=== PATIENT | male | born 1965 | race Caucasian/White ===

== ENCOUNTER 2023-11-14 07:00 | Outpatient (NON) | payer OTHER, SELFPAY | END 2023-11-14 07:01 | disposition home or self-care (01) | PROVIDERS: PCP Emergency Medicine; Visit Provider Internal Medicine Gastroenterology | DX: K63.5 Polyp of colon (principal); K62.5 Hemorrhage of anus and rectum | CPT/HCPCS: 88305 ==

== ENCOUNTER 2023-11-14 12:03 | Day surgery (SDC) | payer OTHER, SELFPAY ==
[2023-11-01 08:56] VITALS: BMI 27.6
[2023-11-02 07:37] VITALS: BMI 27.0
[2023-11-14 12:30] VITALS: BP 142/90; PULSE 77; RESP 20; TEMP 36.8; O2SAT 100
[2023-11-14] MEDS: LACTATED RINGERS 1,000 ML 150 ML IV CONT (12:32)
--- NOTE | 2023-11-14 12:49 | P.HP_ITS ---
History of Present Illness History of Present Illness Consent: Risks, benefits, and alternatives have been discussed and questions answered. Patient agrees to proceed with procedure. Chief complaint: Gerd and Blood in Stool Narrative: Pb Bagley is a 58 year old male presents for colonoscopy and EGD. Patient has noticed occasional bright red blood per rectum with blood admixed to stool intermittently over last several years. He denies any abdominal or rectal pain. Additionally patient has intermittent heartburn. He takes Tums or Rolaids which seems to help. He takes this only intermittently. Heartburn has been present for several years. Patient denies any dysphagia or upper GI bleeding. Review of Systems Review of Systems: Review of systems is noncontributory. [facility] Social History Social History Smoking packs per day: 0.5 Smoking cigarettes per day: 10.0 Years smoked: 30 Smoking pack-years: 15.00 Smoking status: Former smoker Alcohol intake: current Alcohol use details: socially Substance use: never Substance use type: does not use Living arrangements: alone Spiritual care concerns: No Meds Home Medications and Allergies Home Medications Medication Instructions Recorded Confirmed Type calcium carbonate 300 mg (750 mg) 1 tablet PO TID PRN Indigestion 11/14/23 11/14/23 History chewable tablet (Tums) Allergies Allergy/AdvReac Type Severity Reaction Status Date / Time No Known Allergies Allergy Unknown Verified 11/14/23 12:29 Vital Signs Vital Signs - 24 hr 11/14/23 12:30 Temperature 98.3 F Pulse Rate 77 Respiratory Rate 20 Blood Pressure 142/90 H Pulse Oximetry 100 Oxygen Delivery Room Air Exam Narrative: Physical exam reveals patient signs stable. HEENT marked bulbar. Patient is anicteric. Lungs are clear to auscultation and to percussion is without murmur or extra sounds. Abdomen bowel sounds are present soft nontender with no organomegaly. Digital external rectal exam is normal. Assessment and Plan Assessment and plan (1) Heartburn: Code(s): R12 - Heartburn Status: Acute Assessment and Plan: Patient with intermittent heartburn. Currently only takes Tums intermittently. Would recommend a trial of Pepcid. EGD is requested will be performed. Further recommendations may be given after endoscopy. Anti-reflux measures also encouraged. (2) Rectal bleeding: Code(s): K62.5 - Hemorrhage of anus and rectum Status: Acute Assessment and Plan: Patient complains of occasional bright red blood per rectum. Recommend stool softener such as Metamucil daily. Further recommendations will be given after endoscopy
--- NOTE | 2023-11-14 13:18 | WPDANESEPPF ---
Anes - Initial Pre Proc Eval Procedure: Operation Date: 11/14/23 13:30 Proposed Procedures p Esophagogastroduodenoscopy - Riley Doe MD s Diagnostic Colonoscopy - Riley Doe MD Date/Time: 11/14/23 13:18 Surgeon: Riley Doe MD Pre Op Diagnosis: Gerd and Blood in Stool Patient Data Age: 58 Gender: M Height: 1.8 m Weight: 87.45 kg Last Vital Signs Temp 36.8 C 11/14/23 12:30 Pulse 77 11/14/23 12:30 Resp 20 11/14/23 12:30 BP 142/90 H 11/14/23 12:30 Pulse Ox 100 11/14/23 12:30 O2 Del Method Room Air 11/14/23 12:30 Allergies Allergy/AdvReac Type Severity Reaction Status Date / Time No Known Allergies Allergy Unknown Verified 11/14/23 12:29 Home Medications Medication Instructions Recorded Confirmed Type calcium carbonate 300 mg (750 mg) 1 tablet PO TID PRN Indigestion 11/14/23 11/14/23 History chewable tablet (Tums) Patient hx anesthesia problems: none Family hx anesthesia problems: none Results Review: All pre-operative results and documents have been reviewed as part of the pre-operative evaluation. [facility] Social History Social History Smoking packs per day: 0.5 Smoking cigarettes per day: 10.0 Years smoked: 30 Smoking pack-years: 15.00 Smoking status: Former smoker Alcohol intake: current Alcohol use details: socially Substance use: never Substance use type: does not use Living arrangements: alone Spiritual care concerns: No Anes - Eval Final PreProcedure Day of Procedure 11/14/23 13:18 Patient weight: overweight Heart: regular rate and rhythm Lungs: clear to auscultation Airway: Mallampati scale class II Neurological: alert and oriented Last oral intake: >/= 8 hours ASA classification: II Emergent: no Anesthetic plan: proceed Anesthesia type and monitoring: general GIVS and standard monitoring Results Review: All pre-operative results and documents have been reviewed as part of the pre-operative evaluation. Informed Consent: The patient's anesthetic plan and its attendant risks and benefits were discussed with the patient/family/POA. Questions were solicited and answers provided to the satisfaction of the patient/family/POA.
[2023-11-14 13:53] VITALS: BP 95/57; PULSE 54; RESP 14; O2SAT 97
[2023-11-14 14:03] VITALS: BP 97/56; PULSE 54; RESP 14; O2SAT 98
--- NOTE | 2023-11-14 14:07 | WPDANESPN ---
Anes - Prog Note Post-Op Date/Time: 11/14/23 14:07 Cardiovascular status: normal Respiratory status: normal Airway patency: baseline Mental status: baseline Post-Op hydration status: normal Vital Signs: Last Vital Signs Temp 36.8 C 11/14/23 12:30 Pulse 77 11/14/23 12:30 Resp 20 11/14/23 12:30 BP 142/90 H 11/14/23 12:30 Pulse Ox 100 11/14/23 12:30 O2 Del Method Room Air 11/14/23 12:30 Pain Score (VAS): 0 I/O: Intake & Output 11/13/23 11/14/23 11/14/23 23:59 07:59 15:59 Intake Total 400 Balance 400 Patient Feedback: Patient satisfied with anesthetic care.
[2023-11-14 14:13] VITALS: BP 128/96; PULSE 55; RESP 14; O2SAT 99
== END 2023-11-14 14:25 | disposition home or self-care (01) ==
PROVIDERS: PCP Emergency Medicine; Visit Provider Internal Medicine Gastroenterology
PROC: 0DJ08ZZ Inspection of Upper Intestinal Tract, Via Natural or Artificial Opening Endoscopic (ICD-10-PCS; CPT 43235; principal; 2023-11-14 13:30)
PROC: 0DJD8ZZ Inspection of Lower Intestinal Tract, Via Natural or Artificial Opening Endoscopic (ICD-10-PCS; CPT 45378; 2023-11-14 13:30)
DX: R12 Heartburn (principal); Z12.11 Encounter for screening for malignant neoplasm of colon; D12.8 Benign neoplasm of rectum; K64.8 Other hemorrhoids
CPT/HCPCS: 45385; 43239

== ENCOUNTER 2024-11-24 12:58 | Outpatient (CLI) | payer OTHER, SELFPAY ==
--- NOTE | 2024-11-24 | ECG_ITS ---
Test Date: 2024-11-24 13:17:50 Measurements Intervals [place] Rate: 73 P: 59 MD: 191 QRS: 43 QRSD: 84 T: 32 QT: 351 QTc: 389 Interpretive Statements SINUS RHYTHM BASELINE ARTIFACT- I, II, III, AVR, AVL, AVF, V1 NORMAL ECG No previous ECG available for comparison Electronically Signed On 11-24-2024 13:57:49 CDT by Augusto Stratton D.O.
--- OUTSIDE RECORDS SUMMARY | 2024-11-24 14:47 | XMS_ITS | CONTINUITY OF CARE DOCUMENT ---
Author Name ottoniel alcazar Address Unknown Organization [facility] Address [address] [place] [address] Phone [phone] Care Team Providers Care Environmental Emergencies Planner Name Role Phone Wilfredo Wade MD Unavailable [phone] Wilfrdeo Wade MD Unavailable [phone] INSURANCE PROVIDERS Payer name Policy type / Coverage type [place] red green party ID [employer] Commercial insurance company [id number]
--- OUTSIDE RECORDS SUMMARY | 2024-11-24 14:47 | XMS_ITS | Referral Summary ---
Author Organization [facility] Address [address] [place] [address] Care Team Providers Care Mash Filter Cloth Changer Name Role Phone Unknown, Notinfile Primary Care Provider Unavail able Allergies No known active allergies Social History Tobacco Use Types Packs/Day Years Used Date Smoking Tobacco: Never Assessed Personal Safety Answer Date Recorded Have you ever been in or are you currently in a harmful physical or emotional relationship or is someone making you feel afraid or unsafe? 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 Gender Identity Not on file Sexual Orientation Not on file Last Filed Vital Signs Vital Sign Reading Time Taken Comments Blood Pressure 170/80 10/30/2023 8:30 AM CDT Pulse 51 10/30/2023 8:30 AM CDT Temperature 36.5 C (97.7 F) 10/30/2023 4:08 AM CDT Respiratory Rate 18 10/30/2023 4:08 AM CDT Oxygen Saturation 96% 10/30/2023 8:30 AM CDT Inhaled Oxygen Concentration - - Weight 88.5 kg (195 lb) 10/29/2023 8:12 PM CDT Height 180.3 cm (5' 11 ) 10/29/2023 8:12 PM CDT Body Mass Index 27.2 10/29/2023 8:12 PM CDT Plan of Treatment Not on file Insurance [employer] OPEN ACCESS CIGNA Care Teams Mash Filter Cloth Changer Relationship Specialty Start Date End Date Unknown, Notinfile PCP - General 10/28/23
--- OUTSIDE RECORDS SUMMARY | 2024-11-24 14:47 | XMS_ITS | Continuity of Care Document ---
Author Organization [facility] Address [address] [place] [address] [place] [address] Phone Care Team Providers Care Battery Installer Name Role Phone Marcello Edmondson MD Unavailable Unavailable Allergies, Adverse Reactions, Alerts Substance Reaction Status Criticality No Known Allergies Active No Inform ation Medications Medication Instructions Dosage Effective Dates (start - stop) Status Comments Norvasc 10 mg tablet take 1 tablet by or al route every day 10 MG - Active hydralazine 10 mg tablet take 1 tablet by oral route 3 times every day with food 10 MG - Active Blood Pressure Kit check bp once per day 25 - Active HTN Procedures Procedure Date OFFICE/OUTPATIENT VISIT, EST PREV VISIT, EST, AGE 40-64 OFFICE/OUTPATIENT VISIT, EST OFFICE/OUTPATIENT VISIT, EST PREV VISIT, NEW, AGE 40-64 OFFICE/OUTPATIENT VISIT, NEW Advance Directives Directive Yes / No Effective Date File Name No Information Encounters Encounter Description Practice Location Reason(s) For Visit Diagnoses Date Provider Providers Copied on Encounter OFFICE/OUTPA TIENT VISIT, EST [facility], [email or web address] [place], [id number], [place] tel:[phone] [facility] HTN (chief complaint) Chest painEssential (primary) hypertension 5 Delvis Armendariz. [address], [place], [place], [id number] , [place]. tel:[phone] PREV VISIT, EST, AGE 40-64 [facility], [email or web address], [place], [place], [id number], tel:[phone] [facility] physical (chief complaint) Encounter for general adult medical exam w abnormal findingsEssential (primary) hypertension 5 Delvis Armendariz. [address], [place], [place], [id number] , . tel:[phone] OFFICE/OUTPA TIENT VISIT, EST [facility], [address], [place], [place], [id number], tel:[phone] [facility] HTN (chief complaint) GERD1 (chief complaint) colon (chief complaint) Essential (primary) hypertensionGERD w/o esophagitisPolyp of colon 5 Delvis Armendariz. [address], [place], [place], [id number] , . tel:[phone] PREV VISIT, NEW, AGE 40-64 [facility], [address], [place], [place], [address], tel:[phone] [facility] physical (chief complaint) Encounter for general adult medical exam w abnormal findingsViral infectionEssential (primary) hypertensionOccult blood in stoolGERD w/o esophagitis 4 Delvis Armendariz. [address], [place], [id number] , . [phone] Family History Family Member Type Diagnosis Age At Onset Father Problem Hypertension Sister Problem Alive and well Mother Problem Alive and well Payers Payer name Insurance type Covered republican ID Idalmis pruitt(s) Leisa [id number] Social History Type Description Quantity Date Captured Comments Alcohol Use Details Caffeine Use Details Unknown Tobacco Use Status Ex-cigarette smoker 025 Smoking Status Former smoker Sex Male Vital Signs Date / Time: Height Weight BMI Pulse Rate Blood Pressure Temperature Respiratory Rate Body Surface Area Head Circumference BMI percentile Pulse Ox Inhaled Ox 12:14 PM 71.00 in 192.60 lbs 26.8 6 kg/m eter (2) 85 /min 146/80 mm[Hg] 98.5 F 16 /min Chief Complaint And Reason For Visit From encounter dated '11/24/2024 12:11'. HTN (chief complaint). Description: Pt has been feeling off recently with intermittent sudden onsetof chest tightness, diffuse sweaty, nausea with lightheadedness and some sob which occurred twice during last two weeks. Pt states that both episode occurs while he was standing without physically active Pt denies any palpitation. Pt denies any recent travel or bedrest .Pt states that symptoms resolved after 30 mins. Pt states that his HR went up to 130s during the last episode two days ago. Pt states that he feels fine now. Pt also notices ild tingling both finger tips. Pt denies any acute symptoms Plan Of Treatment Date Type Action Status Referral Ordered: Cardiology (related to Chest pain) ordered Referral Ordered: Referrals: Cardiology. Evaluate and treat ordered Referral Ordered: CARDIOVASCULAR STRESS TEST ordered Referral Ordered: EKG for initial prevent exam ordered Referral Ordered: COLONOSCOPY AND BIOPSY ordered Appointment Pb Bagley BOOKED History Of Present Illness Encounter Date Complaint History Of Prese nt Illness HTN Pt has been feel ing off recently with intermittent sudden onset of chest tightness, diffuse sweaty, nausea with lightheadedness and some sob which occurred twice during last two weeks. Pt states that both episode occurs while he was standing without physically active Pt denies any palpitation. Pt denies any recent travel or bedrest .Pt states that symptoms resolved after 30 mins. Pt states that his HR went up to 130s during the last episode two days ago. Pt states that he feels fine now. Pt also notices ild tingling both finger tips. Pt denies any acute symptoms physical Pt needs annual physical pt has HTN Pt takes hydralazine and norvasc and his bp is down around 140-150 at home. Pt no longer has any headache Pt denies any chest pain Pt denies any vision issue. pt overall feels much better pt denies any side effects from medication Pt denies any other complaints HTN Pt has been havi ng vague headache for two months. Pt denies any chest pain or vision change Pt denies any nausea, vomiting Pt feels tired Pt feels occasional dizziness. Pt denies any vision change GERD1 Pt has very mild GERD Pt had benign EGD last year colon Pt denies any re current blood in stool Pt had colonoscopy done last year which showed internal hemorrhoid and hyperplastic polyps physical Pt needs annual physical pt states tat he feels fine until one week ago Pt c/o night sweat, low back pain, diffuse myalgia, feels feverish, chills, for one week Pt denies any cough, sore throat. Pt has poor appetite and some indigestion. Pt denies any abdominal pain pt does have chronic GERD for many years and he has been taking tums only Pt also has been having intermittent bright red blood in stool for many years .pt denies any abdominal pain ,Pt denies any weight loss . Instructions Date Instruction Additional Infor mation No Information Assessments Type Assessment Date assessment Chest pain assessment Essential (primary) hypertension Mental Status Date Cognitive Assessment Orientation - [place] ed to time, place, person, situation.
--- OUTSIDE RECORDS SUMMARY | 2024-11-24 14:47 | XMS_ITS | Clinical Summary ---
Author Organization [facility] Address [address] [place] [address] Phone Care Team Providers Care Fruit Pitter Name Role Phone Unavailable Primary Care Provider Unavailabl e Allergies No known active allergies Medications naproxen (NAPROSYN) 500 mg Oral tablet Take 1 Tab by mouth 2 times daily with meals. 15 Tab None 04/17/2011 Active cyclobenzaprine (FLEXERIL) 10 mg Oral tablet Take 1 Tab by mouth 3 times daily as needed for Spasm. 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 Gender Identity Not on file Sexual Orientation Not on file Last Filed Vital Signs Vital Sign Reading Time Taken Comments Blood Pressure 140/56 04/17/2011 1:22 PM CDT Pulse 70 04/17/2011 1:22 PM CDT Temperature 37.1 C (98.8 F) 04/17/2011 11:37 AM CDT Respiratory Rate 18 04/17/2011 1:22 PM CDT Oxygen Saturation 94% 04/17/2011 1:22 PM CDT Inhaled Oxygen Concentration - - Weight 90.7 kg (200 lb) 04/17/2011 11:02 AM CDT Height 180.3 cm (5' 11 ) 04/17/2011 11:02 AM CDT Body Mass Index 27.89 04/17/2011 11:02 AM CDT Plan of Treatment Health Maintenance Due Date Last Done Comments DTAP/TDAP/TD VACCINES (1 - Tdap) 1983 COLORECTAL SCREENING 2009 Colorectal Cancer Screening 2009 FIT-DNA Q 3 years 2009 FIT/FOBT Q 1 year 2009 Flex Sig/CT Colonography Q 5 years 2009 ZOSTER VACCINE (1 of 2) 2014 INFLUENZA VACCINE (#1) 2024 RSV VACCINE (60+ or ) (1 - 1-dose 75+ series) 2039 HEPATITIS B VACCINES Aged Out No long er eligible based on patient's age to complete this topic PNEUMOCOCCAL VACCINE 0-49 YEARS Aged Out No longer eligible based on patient's age to complete this topic
--- OUTSIDE RECORDS SUMMARY | 2024-11-24 14:47 | XMS_ITS | Clinical Summary ---
Author Organization [facility] Address [address] [place] [address] Care Team Providers Care Cement Mixer Driver Name Role Phone Unknown, Notinfile Primary Care Provider Unavail able Allergies No known active allergies Medical History Medical History Date Comments History of shoulder surgery Hist ory of shoulder surgery; Comments: TAP 05/15/2015 - Social History Tobacco Use Types Packs/Day Years Used Date Smoking Tobacco: Never Assessed Personal Safety Answer Date Recorded Have you ever been in or are you currently in a harmful physical or emotional relationship or is someone making you feel afraid or unsafe? 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 Gender Identity Not on file Sexual Orientation Not on file Obstetrics History Last Filed Vital Signs Vital Sign Reading [...] 10/29/2023 8:12 PM CDT Plan of Treatment Health Maintenance Due Date Last Done Comments Colon Cancer Screening-Colonoscopy 1964 Depression Screening 1964 Hepatitis C Screening 1964 Prostate Cancer Screening-PSA 1964 DTaP/Tdap/Td Vaccine (1 - Tdap) 1975 Hepatitis B Screening 1982 Regular Well Visit/Exam 18-64 1982 Zoster Vaccine (1 of 2) 2014 Influenza Vaccine (Season Ended) 2025 Pneumococcal vaccine <65 Aged Out No longer eligible based on patient's age to complete this topic Insurance [employer] OPEN ACCESS [employer] Care Teams Cement Mixer Driver Relationship Specialty Start Date End Date Unknown, Notinfile PCP - General 10/28/23
== END 2024-11-24 12:59 | disposition home or self-care (01) ==
LOC: ANHCARD 13:01
PROVIDERS: PCP Emergency Medicine; Visit Provider Emergency Medicine
DX: R07.9 Chest pain, unspecified (principal)
CPT/HCPCS: 93005